=== PATIENT | male | born 1940 | race American Indian/Alaskan Native ===

== ENCOUNTER 2017-04-06 11:00 | Outpatient (CLI) | payer MEDICARE ==
--- NOTE | 2017-04-06 11:36 | XRay Report ---
PA and lateral chest: Cough. Increased interstitial markings are present at both lung bases however there is no evidence of consolidation. The costophrenic angles are sharp. The lungs otherwise appear generally clear. The heart is normal in size. These findings are generally unchanged compared to prior exam in December 2014. Impressions: Bilateral chronic lung disease. No acute finding.
== END 2017-04-06 11:01 | disposition home or self-care (01) ==
LOC: SPVIMAG 11:00
PROVIDERS: ATTEND Internal Medicine
DX: J98.4 Other disorders of lung (principal)
CPT/HCPCS: 71046